=== PATIENT | female | born 1975 | race Caucasian/White ===

== ENCOUNTER 2021-11-04 11:21 | Outpatient (CLI) | payer BC | END 2021-11-04 11:22 | disposition home or self-care (01) | LOC: BICMAMMO 11:21 | PROVIDERS: ATTEND Family Medicine | DX: Z12.31 Encounter for screening mammogram for malignant neoplasm of breast (principal); Z85.41 Personal history of malignant neoplasm of cervix uteri | CPT/HCPCS: 77063; 77067 ==